=== PATIENT | male | born 1970 | race Two or more races ===

== ENCOUNTER 2017-03-29 20:41 | Emergency (ER) | payer MEDICAID ==
[~2017-03-29] VITALS: Ht 167.6 cm; Wt 63.5 kg
[~2017-03-29 20:41] MED LIST: IBUP1POW8
[2017-03-29 21:00] VITALS: BP 142/78
[2017-03-29 21:49] LABS: Basophils # (auto) 0 uL; Basophils % (auto) 0.4 % (0.0-2.0); CONDITION Y; Eosinophils # (auto) 0.1 uL; Eosinophils % (auto) 0.5 % (0.0-7.0); Hemoglobin 14.5 g/dL (13.5-17.5); Lymphocytes # (auto) 1.4 uL; Lymphocytes % (auto) 11.2 % (10.0-50.0); Mean Corpuscular Hemoglobin 28.2 pg (28.0-32.0); Mean Corpuscular Hgb Conc. 33.6 g/dL (32.0-36.0); Mean Corpuscular Volume 83.9 fL (80.0-100.0); Mean Platelet Volume 9.6 fL (7.4-10.4); Monocytes # (auto) 1.1 uL; Monocytes % (auto) 9.2 % (0.0-12.0); Neutrophils # (auto) 9.6 uL; Neutrophils % (auto) 78.7 % (37.0-80.0); Platelet Count (auto) 310 10^3/uL (140-450); White Blood Cell 12.2 10^3/uL (4.4-10.8)
[2017-03-29 22:04] LABS: Albumin 3.9 g/dL (3.4-5.0); BUN/Creatinine Ratio 14.4; Calcium 8.8 mg/dL (8.5-10.1); Potassium 3.9 mmol/L (3.5-5.1)
[2017-03-29 22:06] LABS: Bilirubin, Total 0.4 mg/dL (0.2-1.0); Total Protein 7.4 g/dL (6.4-8.2)
[2017-03-29] MEDS ORDERED: cefTRIAXone SOD 1,000 MG VL IM ONE (23:00)
[2017-03-29] MEDS ORDERED: methylPREDNISolone SOD SUCC 125 MG/2 ML VL IM ONE (23:00)
== END 2017-03-29 23:39 | disposition home or self-care (01) ==
LOC: ER 20:45
DX: J02.9 Acute pharyngitis, unspecified (principal); R59.1 Generalized enlarged lymph nodes
CPT/HCPCS: 36415; 70490; 80053; 85025; 96372; 99285; J0696; J2930